=== PATIENT | male | born 1995 | race Caucasian/White ===

== ENCOUNTER 2017-04-14 15:51 | Emergency (ER) | payer BC ==
[2017-04-14] MEDS ORDERED: fentaNYL 100 MCG/2 ML INJ IVP ONE (16:03)
[2017-04-14] MEDS ORDERED: NS 1,000 ML IV ONE (16:03)
[2017-04-14 16:05] VITALS: O2SAT 96
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
[2017-04-14 17:26] VITALS: BP 140/92; PULSE 81; RESP 16
[2017-04-14 17:51] VITALS: TEMP 97.9
== END 2017-04-14 17:50 | disposition home or self-care (01) ==
DX: S12.601A Unspecified nondisplaced fracture of seventh cervical vertebra, initial encounter for closed fracture (principal); V00.321A Fall from snow-skis, initial encounter; Y99.8 Other external cause status; Y93.23 Activity, snow (alpine) (downhill) skiing, snowboarding, sledding, tobogganing and snow tubing
CPT/HCPCS: 96374; J2270; J3010